=== PATIENT | female | born 1940 | race Two or more races ===

== ENCOUNTER → 2016-11-06 | Outpatient (CLI) | payer MEDICARE, MEDICAID ==
[~2016-11-06] MED LIST: ACET-66 PO; CARV6.2534 PO; IBUP-1547 PO; LISI2.5T2 PO; [UNRECOGNIZED DRUG - CODE] PO
== END | disposition home or self-care (01) ==
LOC: RADPV 14:48
PROVIDERS: ATTEND Family Medicine
DX: M19.011 Primary osteoarthritis, right shoulder (principal); M25.811 Other specified joint disorders, right shoulder; M75.91 Shoulder lesion, unspecified, right shoulder

== ENCOUNTER 2018-02-04 06:54 | Day surgery (SDC) | payer MEDICARE, MEDICAID ==
[~2018-02-04] VITALS: Ht 154.9 cm; Wt 63.2 kg
[~2018-02-04 06:54] MED LIST changes: -ACET-66 PO; -CARV6.2534 PO; +DIGO-44 PO; +GABA-529 PO; +GLIP10 PO; -IBUP-1547 PO; +ISOS30TA6 PO; +LISI1TAB11 PO; -LISI2.5T2 PO; +LOPE2TAB52 PO; +METO-558 PO; +NITR.4 SL; +RIVA15T PO; +SIMV-261 PO; +SITA50 PO; +SODIUM CHLORIDE 0.9% 1,000 ML IV ONE; -[UNRECOGNIZED DRUG - CODE] PO
[2018-02-04] MEDS ORDERED: SODIUM CHLORIDE 0.9% 1,000 ML IV ONE ×2 (07:00→07:43)
[2018-02-04 07:54] LABS: BASOPHILS % (AUTO) 0.4 % (0.0-2.0); EOSINOPHILS % (AUTO) 3.6 % (1.0-6.0); HEMATOCRIT 38.8 % (36-46); HEMOGLOBIN 13.1 g/dL (12.0-16.0); LYMPHOCYTES # (AUTO) 1.8 K/uL (1.0-4.8); LYMPHOCYTES % (AUTO) 22.5 % (22.0-44.0); MEAN CORPUSCULAR HEMOGLOBIN 30.7 pg (26.0-34.0); MEAN CORPUSCULAR HGB CONC 33.8 G/dL (31.0-37.0); MEAN CORPUSCULAR VOLUME 91 fL (80-100); MONOCYTES # (AUTO) 0.7 K/uL (0.1-1.0); MONOCYTES % (AUTO) 8.4 % (2.0-9.0); NEUTROPHILS # (AUTO) 5.2 K/uL (1.8-7.7); NEUTROPHILS % (AUTO) 65.1 % (40.0-70.0); PLATELET COUNT (AUTO) 180 K/uL (150-450); RED BLOOD CELL COUNT(AUTO) 4.28 MIL/uL (4.00-5.20); RED CELL DISTRIBUTION WIDTH 13.4 % (11.5-14.5)
[2018-02-04 08:06] LABS: PROTHROMBIN TIME 10.6 SEC (9.4-11.6)
[2018-02-04 08:10] LABS: CALCIUM, TOTAL 9.3 mg/dL (8.8-10.5); CREATININE 1.17 mg/dL (0.60-1.30)
[2018-02-04] MEDS ORDERED: LIDOCAINE 1% 30 ML/SOD BICARB 8.4% 4 ML SQ ONE ×2 (08:30→10:00)
[2018-02-04] MEDS ORDERED: FentaNYL CITRATE-PF 100 MCG/2 ML VIAL IVP ONE ×2 (08:30→10:00)
[2018-02-04] MEDS ORDERED: IOHEXOL 300 MG/ML 10 ML VIAL IARTIC ONE (08:30)
[2018-02-04] MEDS ORDERED: TRIAMCINOLONE ACETONIDE 40 MG/ML VIAL IARTIC ONE (08:30)
[2018-02-04] MEDS ORDERED: MIDAZOLAM HCL 2 MG/2 ML VIAL IVP ONE ×2 (08:30→10:00)
[2018-02-04] MEDS ORDERED: BUPIVACAINE HCL/PF 0.75% 10 ML VIAL IARTIC ONE (08:30)
[2018-02-04] MEDS ORDERED: HEPARIN SODIUM 1000 UNITS/NS 1,000 ML ONE (08:47)
[2018-02-04] MEDS ORDERED: SODIUM BICARBONATE 50 MEQ/50 ML VIAL ONE (08:47)
[2018-02-04] MEDS ORDERED: LIDOCAINE HCL/PF 1% 30 ML VIAL ONE (08:47)
[2018-02-04] MEDS ORDERED: IOHEXOL 300 MG/ML 150 ML VIAL ONE (08:47)
[2018-02-04 09:05] VITALS: BP 154/107
[2018-02-04] MEDS ORDERED: MIDAZOLAM HCL 2 MG/2 ML VIAL ONE (09:26)
[2018-02-04] MEDS ORDERED: FentaNYL CITRATE-PF 100 MCG/2 ML VIAL ONE (09:26)
[2018-02-04] MEDS ORDERED: HEPARIN SODIUM 2,000 UNITS in HEPARIN SODIUM 1000 UNITS/NS 1,000 ML IARTER ONE (09:47)
[2018-02-04 09:56] VITALS: BP 168/92
[2018-02-04] MEDS ORDERED: IOHEXOL 300 MG/ML 150 ML VIAL IARTER ONE (10:00)
== END 2018-02-04 16:20 | disposition home or self-care (01) ==
LOC: CATHLAB 06:54
PROVIDERS: ATTEND Internal Medicine Cardiovascular Disease
DX: I20.8 Other forms of angina pectoris (principal); I48.2 Chronic atrial fibrillation; E11.22 Type 2 diabetes mellitus with diabetic chronic kidney disease; I13.0 Hypertensive heart and chronic kidney disease with heart failure and stage 1 through stage 4 chronic kidney disease, or unspecified chronic kidney disease; N18.3 Chronic kidney disease, stage 3 (moderate); I50.30 Unspecified diastolic (congestive) heart failure; E78.00 Pure hypercholesterolemia, unspecified; M19.011 Primary osteoarthritis, right shoulder; Z87.440 Personal history of urinary (tract) infections; Z90.722 Acquired absence of ovaries, bilateral; Z79.01 Long term (current) use of anticoagulants; Z79.891 Long term (current) use of opiate analgesic; Z79.899 Other long term (current) drug therapy; Z98.890 Other specified postprocedural states
CPT/HCPCS: 36415; 80048; 85025; 85610; 85730; 93458; 99152; 99153; J1644; J2250; J3010; J3490 ×2; J7030; Q9967

== ENCOUNTER 2020-03-05 12:20 | Emergency (ER) | payer MEDICARE, MEDICAID ==
[~2020-03-05] VITALS: Ht 157.5 cm; Wt 100.0 kg
[~2020-03-05 12:20] MED LIST changes: -DIGO-44 PO; +DIGO125T84 PO; +GABA-1216 PO; -GABA-529 PO; -NITR.4 SL; +NITR0.4T52 SL; -SODIUM CHLORIDE 0.9% 1,000 ML IV ONE
[2020-03-05 13:16] LABS: BASOPHILS % (AUTO) 0.3 % (0.0-2.0); EOSINOPHILS % (AUTO) 2.4 % (1.0-6.0); HEMATOCRIT 40.2 % (36-46); HEMOGLOBIN 13.4 g/dL (12.0-16.0); LYMPHOCYTES # (AUTO) 1.3 K/uL (1.0-4.8); LYMPHOCYTES % (AUTO) 13.9 % (22.0-44.0); MEAN CORPUSCULAR HGB CONC 33.4 G/dL (31.0-37.0); MEAN CORPUSCULAR VOLUME 90 fL (80-100); MONOCYTES # (AUTO) 0.6 K/uL (0.1-1.0); MONOCYTES % (AUTO) 6.5 % (2.0-9.0); NEUTROPHILS # (AUTO) 7.5 K/uL (1.8-7.7); NEUTROPHILS % (AUTO) 76.9 % (40.0-70.0); PLATELET COUNT (AUTO) 127 K/uL (150-450); RED BLOOD CELL COUNT(AUTO) 4.47 MIL/uL (4.00-5.20); RED CELL DISTRIBUTION WIDTH 13.1 % (11.5-14.5)
[2020-03-05 13:33] LABS: ALBUMIN 3.9 g/dL (3.4-5.0); CALCIUM, TOTAL 9.6 mg/dL (8.8-10.5); CREATININE 1.76 mg/dL (0.60-1.30); POTASSIUM 4.1 mmol/L (3.5-5.1); TOTAL PROTEIN, SERUM 7.7 g/dL (6.4-8.2)
[2020-03-05] MEDS ORDERED: SODIUM CHLORIDE 0.9% 250 ML IV ONE (14:00)
[2020-03-05 14:05] LABS: APPEARANCE,URINE CLEAR (CLEAR); BILIRUBIN,URINE NEGATIVE (NEGATIVE); GLUCOSE, URINE (UA) >=1000 mg/dL (NEGATIVE); KETONES,URINE NEGATIVE (NEGATIVE); LEUKOCYTE ESTERASE ,URINE NEGATIVE (NEGATIVE); NITRATE,URINE NEGATIVE (NEGATIVE); OCCULT BLOOD,URINE NEGATIVE (NEGATIVE); PROTEIN,URINE NEGATIVE (NEGATIVE)
[2020-03-05 14:27] LABS: BACTERIA,URINE None Seen /HPF (None Seen); RBC,URINE None Seen /HPF (0-2); TRANSITIONAL EPI CELLS,URINE Few /LPF (None Seen); WBC,URINE 0-2 /HPF (0-5); YEAST,URINE Few /HPF (None Seen)
[2020-03-05 14:32] VITALS: BP 128/76
[2020-03-05 14:48] LABS: GLUCOSE,POINT OF CARE 419 MG/DL (70-110)
== END 2020-03-05 16:10 | disposition home or self-care (01) ==
LOC: EMS 12:41
DX: E11.65 Type 2 diabetes mellitus with hyperglycemia (principal); Z79.899 Other long term (current) drug therapy; Z79.4 Long term (current) use of insulin
CPT/HCPCS: 36415; 71045; 80053; 81001; 82009; 82010; 82962; 85025; 99284; J7050

== ENCOUNTER 2023-11-30 09:48 | Emergency (ER) | payer MEDICARE, MEDICAID ==
[~2023-11-30] VITALS: Ht 157.5 cm; Wt 70.9 kg
[~2023-11-30 09:48] MED LIST changes: +AMLO-258 PO; +APIX2.5T PO; +ATOR40TA28 PO; -DIGO125T84 PO; -GABA-1216 PO; -GLIP10 PO; +HYDR1LIQ5 PO; -ISOS30TA6 PO; +LACT10SO10 PO; -LISI1TAB11 PO; +LISI1TAB53 PO; -LOPE2TAB52 PO; +MAG30ORA11 PO; -METO-558 PO; +METO50 PO; -NITR0.4T52 SL; +ONDA-104 PO; +ONDA4TAB96 PO; +OXYB-34 PO; -RIVA15T PO; +SEMA14TA2 PO; -SIMV-261 PO; -SITA50 PO; +VIBE75TA PO
[2023-11-30 09:56] VITALS: TEMP 97.6
[2023-11-30 12:32] LABS: BASOPHILS % (AUTO) 0.4 % (0.0-2.0); EOSINOPHILS % (AUTO) 0.1 % (1.0-6.0); HEMATOCRIT 32.5 % (36-46); HEMOGLOBIN 10.7 g/dL (12.0-16.0); LYMPHOCYTES # (AUTO) 0.5 K/uL (1.0-4.8); LYMPHOCYTES % (AUTO) 4.9 % (22.0-44.0); MEAN CORPUSCULAR HEMOGLOBIN 31.7 pg (26.0-34.0); MEAN CORPUSCULAR VOLUME 96 fL (80-100); MONOCYTES # (AUTO) 0.3 K/uL (0.1-1.0); MONOCYTES % (AUTO) 3.3 % (2.0-9.0); NEUTROPHILS # (AUTO) 8.5 K/uL (1.8-7.7); PLATELET COUNT (AUTO) 275 K/uL (150-450); RED BLOOD CELL COUNT(AUTO) 3.38 MIL/uL (4.00-5.20); RED CELL DISTRIBUTION WIDTH 18.9 % (11.5-14.5); WHITE BLOOD COUNT (AUTO) 9.3 K/uL (4.5-11.0)
[2023-11-30 12:38] LABS: NEUTROPHILS % (AUTO) 91.3 % (40.0-70.0)
[2023-11-30 12:43] LABS: CALCIUM, TOTAL 9.3 mg/dL (8.8-10.5); CREATININE 0.91 mg/dL (0.60-1.30); POTASSIUM 4.1 mmol/L (3.5-5.1)
[2023-11-30 12:49] LABS: ALBUMIN 3.1 g/dL (3.4-5.0); BILIRUBIN,TOTAL 1.3 mg/dL (0.1-1.0); TOTAL PROTEIN, SERUM 7.2 g/dL (6.4-8.2)
[2023-11-30 12:51] LABS: TROPONIN I-HIGH SENSITIVITY 14 ng/L (<51)
[2023-11-30] MEDS: METOPROLOL TARTRATE 50 MG TABLET PO ONE (12:56)
[2023-11-30 15:10] VITALS: BP 144/80; PULSE 83; RESP 18
== END 2023-11-30 16:19 | disposition short-term general hospital (02) ==
LOC: EMS 09:50
DX: K59.00 Constipation, unspecified (principal); R14.0 Abdominal distension (gaseous); I48.91 Unspecified atrial fibrillation; E11.9 Type 2 diabetes mellitus without complications; I10 Essential (primary) hypertension; Z85.3 Personal history of malignant neoplasm of breast
CPT/HCPCS: 74022; 80053; 83690; 84484; 85025; 93005; 99285